=== PATIENT | female | born 1960 | race Caucasian/White ===

== ENCOUNTER → 2018-01-16 | Outpatient (CLI) | payer OTHER ==
--- NOTE | 2018-01-23 19:20 | Diagnostic Imaging Report ---
INDICATION: Routine screening. Comparison is made with prior study from 10/06/2015. 2-D and 3-D bilateral screening mammography was performed with CAD. The current study was also evaluated with a Computer Aided Detection (CAD) system. FINDINGS: Scattered fibronodular densities are identified bilaterally. No discrete mass or malignant-appearing microcalcifications are seen. There are benign calcifications present. The axillae are unremarkable. IMPRESSION: No mammographic features suspicious for malignancy are identified. ACR BI-RADS Category 2: Benign findings. Result letter will be mailed to the patient. Note: At least 10% of breast cancer is not imaged by mammography. Dictated by: Dictated on workstation # [id number]
== END ==
LOC: RAD 10:22
PROVIDERS: ATTEND Nurse Practitioner Primary Care
DX: Z12.31 Encounter for screening mammogram for malignant neoplasm of breast (principal)
CPT/HCPCS: 77067

== ENCOUNTER 2021-08-27 19:36 | Emergency (ER) | payer SELFPAY ==
[~2021-08-27] VITALS: Ht 172.7 cm; Wt 129.3 kg
--- NOTE | 2021-08-27 19:59 | ED Lower Extremity ---
General Stated Complaint: BILAT LOW EXT CELLULITIS Source: patient Exam Limitations: no limitations (LUZ PERSAUD APRN) History of Present Illness Date Seen by Provider: Aug 27, 2021 Time Seen by Provider: 19:56 Initial Comments To ER with concerns of bilateral lower extremity cellulitis. This is been ongoing waxing and waning for about 2 months. No fevers or chills. She states that this began with severe edema of both lower extremities that then turned into blisters which she then popped. She has had some ulcerative wounds to the medial posterior right leg and lateral posterior left leg. She smokes 1 pack of cigarettes per day. She last used methamphetamine upon awakening this morning. 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 Onset: just prior to arrival Severity: moderate Pain/Injury Location: bilateral leg Method of Injury: unknown Modifying Factors: Improves With Movement (LUZ PERSAUD APRN) Allergies and Home Medications Allergies Coded Allergies: erythromycin base (Verified Allergy, Unknown, 08/27/21) Patient Home Medication List Home Medication List Reviewed: Yes (LUZ PERSAUD APRN) Cephalexin (Cephalexin) 500 Mg Tablet, 500 MG PO QID Prescribed by: LUZ PERSAUD on 08/27/212047 Fluconazole (Diflucan) 150 Mg Tablet, 150 MG PO DAILY Prescribed by: LUZ PERSAUD on 08/27/212107 Last Action: New Order Gabapentin (Gabapentin) 100 Mg Capsule, 200 MG PO Q8H Prescribed by: LUZ PERSAUD on 08/27/212112 Last Action: New Order Review of Systems Constitutional: see HPI; No chills, No fever EENTM: see HPI Respiratory: no symptoms reported Cardiovascular: no symptoms reported Genitourinary: no symptoms reported Musculoskeletal: see HPI Skin: see HPI Psychiatric/Neurological: No Symptoms Reported (LUZ PERSAUD APRN) Physical Exam Vital Signs Vital Signs - First Documented 08/27/21 19:47 Temp 35.9 Pulse 101 Resp 18 B/P (MAP) 195/99 (131) Pulse Ox 100 O2 Delivery Room Air (SARA,STEFANO K DO) Vital Signs Capillary Refill : (LUZ PERSAUD APRN) Height, Weight, BMI Height: '" Weight: lbs. oz. kg; BMI Method: General Appearance: WD/WN, no apparent distress Neck: non-tender, full range of motion Cardiovascular: no murmur, tachycardia Respiratory: normal breath sounds, no respiratory distress, no accessory muscle use Hips: bilateral hip non-tender, bilateral hip normal inspection, bilateral hip normal range of motion Legs: bilateral leg non-tender, bilateral leg normal inspection, bilateral leg normal range of motion Knees: bilateral knee non-tender, bilateral knee normal inspection, bilateral knee normal range of motion Ankles: bilateral ankle non-tender, bilateral ankle normal inspection, bilateral ankle normal range of motion Feet: bilateral foot non-tender, bilateral foot normal inspection, bilateral foot normal range of motion Neurologic/Psychiatric: alert, normal mood/affect, oriented x 3 Skin: normal color, warm/dry, other (lipodermatosclerosis appearance of bilateral lower extremities with several shallow ulcerative wounds with granulation tissue in the wound bed to the medial posterior right lower leg and the lateral posterior left lower leg. Toes are warm and well-perfused.) (LUZ PERSAUD APRN) Progress/Results/Core Measures Results/Orders Lab Results Laboratory Tests Test 08/27/21 20:12 Range/Units White Blood Count 5.0 4.3-11.0 10^3/uL Red Blood Count 4.51 3.80-5.11 10^6/uL Hemoglobin 11.7 11.5-16.0 g/dL Hematocrit 37 35-52 % Mean Corpuscular Volume 83 80-99 fL Mean Corpuscular Hemoglobin 26 25-34 pg Mean Corpuscular Hemoglobin Concent 31 L 32-36 g/dL Red Cell Distribution Width 14.6 H 10.0-14.5 % Platelet Count 256 130-400 10^3/uL Mean Platelet Volume 9.8 9.0-12.2 fL Immature Granulocyte % (Auto) 0 % Neutrophils (%) (Auto) 62 42-75 % Lymphocytes (%) (Auto) 21 12-44 % Monocytes (%) (Auto) 11 0-12 % Eosinophils (%) (Auto) 4 0-10 % Basophils (%) (Auto) 1 0-10 % Neutrophils # (Auto) 3.1 1.8-7.8 10^3/uL Lymphocytes # (Auto) 1.1 1.0-4.0 10^3/uL Monocytes # (Auto) 0.6 0.0-1.0 10^3/uL Eosinophils # (Auto) 0.2 0.0-0.3 10^3/uL Basophils # (Auto) 0.1 0.0-0.1 10^3/uL Immature Granulocyte # (Auto) 0.0 0.0-0.1 10^3/uL Sodium Level 139 135-145 MMOL/L Potassium Level 3.9 3.6-5.0 MMOL/L Chloride Level 103 98-107 MMOL/L Carbon Dioxide Level 24 21-32 MMOL/L Anion Gap 12 5-14 MMOL/L Blood Urea Nitrogen 27 H 7-18 MG/DL Creatinine 0.94 0.60-1.30 MG/DL Estimat Glomerular Filtration Rate 61 BUN/Creatinine Ratio 29 Glucose Level 99 70-105 MG/DL Calcium Level 8.9 8.5-10.1 MG/DL Corrected Calcium 9.1 8.5-10.1 MG/DL Total Bilirubin 0.6 0.1-1.0 MG/DL Aspartate Amino Transf (AST/SGOT) 18 5-34 U/L Alanine Aminotransferase (ALT/SGPT) 20 0-55 U/L Alkaline Phosphatase 144 H 40-136 U/L B-Type Natriuretic Peptide 34.9 <100.0 PG/ML Total Protein 7.5 6.4-8.2 GM/DL Albumin 3.7 3.2-4.5 GM/DL Procalcitonin 0.05 <0.10 NG/ML (SARA,STEFANO K DO) Vital Signs/I&O 08/27/21 08/27/21 19:47 21:10 Temp 35.9 36.3 Pulse 101 110 Resp 18 18 B/P (MAP) 195/99 (131) 163/97 Pulse Ox 100 97 O2 Delivery Room Air Room Air (SARA,STEFANO K DO) Departure Impression Primary Impression: Venous stasis dermatitis Additional Impression: Venous stasis ulcer Disposition: 01 HOME, SELF-CARE Condition: Stable Departure-Patient Inst. Referrals: PANCHO APARICIO MD Patient Instructions: NO INSTRUCTIONS GIVEN Add. Discharge Instructions: 1. Return to ER for any concerns 2. Follow-up with either your regular doctor or it would be a good idea to establish with Dr. Aparicio from wound care. This is here at the hospital and I have provided you with the phone number. You can take the antibiotics as directed. Scripts Gabapentin (Gabapentin) 100 Mg Capsule 200 MG PO Q8H for Neuropathic pain, #60 CAP Prov: LUZ PERSAUD APRN 08/27/21 Fluconazole (Diflucan) 150 Mg Tablet 150 MG PO DAILY, #3 TAB Prov: LUZ PERSAUD APRN 08/27/21 Cephalexin (Cephalexin) 500 Mg Tablet 500 MG PO QID, #28 TAB Prov: LUZ PERSAUD APRN 08/27/21 ATTENDING PHYSICIAN NOTE: I WAS PHYSICALLY PRESENT ER PHYSICIAN WHEN THIS PATIENT WAS IN ER, BUT I WAS NOT INVOLVED IN ANY DECISION MAKING OR ANY CARE OF THIS PATIENT. (STEFANO RUIZ DO) LUZ PERSAUD APRN Aug 27, 2021 19:59 STEFANO RUIZ DO Aug 29, 2021 01:24
[2021-08-27 20:19] LABS: BASOPHILS # (AUTO) 0.1 10^3/uL (0.0-0.1); BASOPHILS % (AUTO) 1 % (0-10); EOSINOPHILS # (AUTO) 0.2 10^3/uL (0.0-0.3); EOSINOPHILS % (AUTO) 4 % (0-10); HEMATOCRIT 37 % (35-52); HEMOGLOBIN 11.7 g/dL (11.5-16.0); LYMPHOCYTES # (AUTO) 1.1 10^3/uL (1.0-4.0); LYMPHOCYTES % (AUTO) 21 % (12-44); MEAN CORPUSCULAR HEMOGLOBIN 26 pg (25-34); MEAN CORPUSCULAR HGB CONC 31 g/dL (32-36); MEAN CORPUSCULAR VOLUME 83 fL (80-99); MEAN PLATELET VOLUME 9.8 fL (9.0-12.2); MONOCYTES # (AUTO) 0.6 10^3/uL (0.0-1.0); MONOCYTES % (AUTO) 11 % (0-12); NEUTROPHILS # (AUTO) 3.1 10^3/uL (1.8-7.8); NEUTROPHILS % (AUTO) 62 % (42-75); PLATELET COUNT 256 10^3/uL (130-400)
[2021-08-27] MEDS ORDERED: CEPH500T PO (20:48)
[2021-08-27 20:58] LABS: ALBUMIN 3.7 GM/DL (3.2-4.5); BILIRUBIN,TOTAL 0.6 MG/DL (0.1-1.0); CALCIUM 8.9 MG/DL (8.5-10.1); CREATININE SERUM 0.94 MG/DL (0.60-1.30); POTASSIUM 3.9 MMOL/L (3.6-5.0); TOTAL PROTEIN 7.5 GM/DL (6.4-8.2)
[2021-08-27] MEDS ORDERED: cefTRIAXone 1 GM PRE-MIX 50 ML IV ONE (21:00)
[2021-08-27] MEDS ORDERED: FLUC150T PO (21:08)
[2021-08-27] MEDS ORDERED: MUPIROCIN 2% OINT 22 GM (BACTROBAN) TUBE ONE (21:09)
[2021-08-27 21:10] VITALS: BP 163/97
[2021-08-27] MEDS ORDERED: GABA-486 PO (21:13)
[2021-08-28] MEDS ORDERED: MUPIROCIN 2% OINT 22 GM (BACTROBAN) TUBE TOP SCH (09:00)
== END 2021-08-27 21:30 | disposition home or self-care (01) ==
LOC: EDUNIT# 19:36 → ER 19:38
DX: I87.2 Venous insufficiency (chronic) (peripheral) (principal); I83.018 Varicose veins of right lower extremity with ulcer other part of lower leg; I83.028 Varicose veins of left lower extremity with ulcer other part of lower leg; L97.819 Non-pressure chronic ulcer of other part of right lower leg with unspecified severity; L97.829 Non-pressure chronic ulcer of other part of left lower leg with unspecified severity; F17.210 Nicotine dependence, cigarettes, uncomplicated
CPT/HCPCS: 36415; 80053; 83880; 84145; 85025; 87070; 87077; 87186; 87205

== ENCOUNTER 2021-10-04 03:43 | Inpatient (IN) | payer SELFPAY ==
[~2021-10-04] VITALS: Ht 175.3 cm; Wt 129.0 kg
[~2021-10-04 03:43] MED LIST: CEPH500T PO; FLUC150T PO; GABA-486 PO
[2021-10-04] MEDS ORDERED: KETOROLAC 30 MG/ML VIAL IVP STA (04:06)
[2021-10-04] MEDS ORDERED: PIPERACILLIN SODIUM/TAZOBACTAM 4.5 GM in NS (IVPB) 100 ML IV ONE (04:15)
[2021-10-04] MEDS ORDERED: NS IV 1000 ML 1,000 ML IV SCH (04:15)
[2021-10-04] MEDS ORDERED: VANCOMYCIN INJECTION 1,000 MG in NS (IVPB) 250 ML IV SCH ×2 (04:15→08:00)
[2021-10-04 04:22] LABS: BASOPHILS % (AUTO) 0 % (0-10); EOSINOPHILS % (AUTO) 0 % (0-10); HEMATOCRIT 37 % (35-52); HEMOGLOBIN 11.7 g/dL (11.5-16.0); LYMPHOCYTES # (AUTO) 0.3 10^3/uL (1.0-4.0); LYMPHOCYTES % (AUTO) 9 % (12-44); MEAN CORPUSCULAR HEMOGLOBIN 25 pg (25-34); MEAN CORPUSCULAR HGB CONC 32 g/dL (32-36); MEAN CORPUSCULAR VOLUME 79 fL (80-99); MONOCYTES # (AUTO) 0.4 10^3/uL (0.0-1.0); MONOCYTES % (AUTO) 13 % (0-12); NEUTROPHILS # (AUTO) 2.6 10^3/uL (1.8-7.8); NEUTROPHILS % (AUTO) 76 % (42-75); PLATELET COUNT 213 10^3/uL (130-400); WHITE BLOOD COUNT 3.4 10^3/uL (4.3-11.0)
--- NOTE | 2021-10-04 04:31 | ED Lower Extremity ---
General Chief Complaint: Skin/Wound Problems Stated Complaint: POSS ULCERS ON BOTH LEGS,RED & HOT Source: patient History of Present Illness Date Seen by Provider: Oct 04, 2021 Time Seen by Provider: 04:00 Initial Comments PT ARRIVES VIA POV, ARRIVES WITH A CANE C/O BILATERAL LOWER LEG WOUNDS, THAT HAVE BEEN THERE "FOR 2 OR 3 MONTHS" WAS SEEN HERE ON 08/27/21 FOR THIS PROBLEM, AND WAS PRESCRIBED GABAPENTIN, FLUCONAZOLE AND CEPHALEXIN. (PT'S FIRST VISIT TO THIS FACILITY) WAS ADVISED TO FOLLOW UP WITH HER PCP, AND ALSO ADVISED TO FOLLOW UP WITH DR. FRIED WITH THE WOUND CARE CLINIC. PT HAS NOT ATTEMPTED TO FOLLOW UP WITH ANYONE AT ANY TIME. STATES HER LEGS HURT AND BURN AND FEEL HOT--THIS IS ALSO ONGOING BUT IS NOW CONCERNED THAT SHE HAS INFECTION HAS NOT CHECKED HER TEMPERATURE. STATES SHE HAS BEEN TAKING "IBUPROFEN THE MAX DOSE" FOR PAIN STATES SHE WAS KEEPING THEM COVERED, BUT THOUGHT THAT WAS CAUSING MORE SKIN BREAKDOWN, SO THEN SHE JUST STARTED LEAVING THEM DRY. HAS NOT APPLIED ANY TOPICAL MEDICATIONS TO THE WOUNDS THERE IS NO DRAINAGE FROM THE WOUNDS SHE HAD REPORTED ON PREVIOUS VISIT THAT HER LEGS HAD STARTED SWELLING AND THEN BLISTERS DEVELOPED AND SHE POPPED THE BLISTERS. PT SMOKES AT LEAST 1 PPD OF CIGARETTES SHE ALSO IS INTERMEDIATE USER OF METHAMPHETAMINES--NOW SMOKES IT, BUT USED TO USE IT IV--STATES THE REASON SHE QUIT USING IT IV WAS BECAUSE "I DIDN'T HAVE ANY VEINS LEFT" SHE LAST SMOKED METH "SOMETIME TODAY" STATES SHE HAS SHOT UP METH IN HER FEET AND LEGS IN THE PAST, BUT DENIES USING IN THE AREAS OF WOUNDS, AND STATES SHE HAS NOT USED IV METH IN A FEW YEARS. PT STATES HER ONLY MEDICAL PROBLEM IS HIGH BLOOD PRESSURE AND TAKES LISINOPRIL--DENIES ANY MISSED DOSES OF MEDICATIONS SHE ALSO HAS HEPATITIS C--NO TREATMENT, STATES "MY BODY HEALED ITSELF" PT DENIES BEING A DIABETIC. PT HAS NOT HAD COVID-19 OR FLU VACCINES "AND I'M NOT GONNA GET THEM" PCP: [facility], DR. BLANCA SAWYER--HAS NOT BEEN THERE IN OVER 2 YEARS. STATES SHE HAS NOT SEEN A DR IN YEARS, UNTIL ER VISIT IN AUGUST ALSO IS ESTABLISHED AT [facility], BUT HAS NOT BEEN THERE IN YEARS EITHER. STATES SHE HAS AN APPOINTMENT THERE THIS Sunday10/06/21. STATES SHE HAS LIVED HER IN [place] FOR 5 YEARS. Allergies and Home Medications Allergies Coded Allergies: erythromycin base (Verified Allergy, Unknown, 08/27/21) Patient Home Medication List Cephalexin (Cephalexin) 500 Mg Tablet, 500 MG PO QID Prescribed by: LUZ PERSAUD on 08/27/212047 Fluconazole (Diflucan) 150 Mg Tablet, 150 MG PO DAILY Prescribed by: LUZ PERSAUD on 08/27/212107 Gabapentin (Gabapentin) 100 Mg Capsule, 200 MG PO Q8H Prescribed by: LUZ PERSAUD on 08/27/212112 Review of Systems Constitutional: no symptoms reported Respiratory: dyspnea on exertion (CHRONIC/UNCHANGED) Cardiovascular: No chest pain; edema Gastrointestinal: no symptoms reported Genitourinary: no symptoms reported Control/STD Prophylaxis: Other (MENOPAUSAL) Musculoskeletal: see HPI Skin: see HPI Psychiatric/Neurological: See HPI, Paresthesia (BURNING SENSATION IN LEGS AND FEET) Past Aqywdtr-Uqtrst-Ipsern Hx Patient Social History Tobacco Use?: Yes (1 PPD) Tobacco type used: Cigarettes Smoking Status: Current Everyday Smoker Substance use?: Yes Substance type: Methamphetamine Additional substance use comme: + IV USE AND SMOKES IT. Substance frequency: Daily Alcohol Use?: No Past Medical History Surgery/Hospitalization HX: HTN Surgeries: Yes (HYST/BSO; BTL; CHOLECYSTECTOMY) Gallbladder, Hysterectomy, Oophorectomy, Tubal Ligation Respiratory: No Cardiac: Yes Chronic Edema/Swelling, Hypertension Neurological: No CONSTRUCTION REP History: Hysterectomy, Menopausal Genitourinary: No Gastrointestinal: Yes (HEPATITIS C-NO TREATMENT; S/P CHOLECYSTECTOMY) Hepatitis, Gall Bladder Disease Musculoskeletal: Yes (CHRONIC HIP PAIN ) Arthritis Endocrine: Yes (OBESITY) HEENT: Yes (POOR DENTITION) Cancer: No Psychosocial: Yes (SUBSTANCE ABUSE) Integumentary: Yes (CHRONIC LEG WOUNDS) Blood Disorders: No Physical Exam Vital Signs Vital Signs - First Documented 10/04/21 03:52 Temp 37.5 Pulse 110 Resp 20 B/P (MAP) 126/94 (105) Pulse Ox 98 O2 Delivery Room Air Capillary Refill : Height, Weight, BMI Height: '" Weight: lbs. oz. kg; 43.00 BMI Method: General Appearance: obese, other (WALKS IN WITH A CANE AND IS MILDLY DYSPNEIC WITH WALKING, BUT ABLE TO TALK IN FULL SENTENCES. DYSPNEA IMPROVES AT REST. REEKS OF CIGARETTES. ) HEENT: other (POOR DENTITION) Neck: normal inspection Cardiovascular: normal peripheral pulses, regular rate, rhythm, no murmur Respiratory: normal breath sounds, no respiratory distress, no accessory muscle use Gastrointestinal: soft Hips: bilateral hip non-tender Legs: bilateral leg other (BILATERAL LOWER LEGS WITH CHRONIC VENOUS STASIS CHANGES, AND EDEMA--2+ AROUND THE ANKLES AND FEET: RIGHT MEDIAL LOWER LEG WITH 9 X 6 CM AREA OF NECROSIS WITH THICK BLACK ESCHAR WITH FAT TISSUE VISIBLE AND INVOLVED WITH NECROTIC/BLACK ESCHAR. LEFT LOWER LEG--LATERAL AND POSTERIOR ASPECT WITH 13 X 11 CM NECROTIC ULCER WITH THICK BLACK ESCHAR WITH FAT INVOLVEMENT WITH NECROSIS AND BLACK ESCHAR. SEVERAL 1 CM OR SMALLER MORE SHALLOW ULCERS TO BILATERAL LOWER LEGS. BOTH LOWER LEGS WITH WARMTH AND ERYTHEMA, WITH CHRONIC VENOUS STASIS CHANGES, AND SOME AREAS OF WOODY INDURATION. NO DRAINAGE. NO STREAKS. DORSALIS PEDIS PULSES +2/4 BILATERALLY. TOES ARE ALL PINK AND WARM WITH GOOD CAPILLARY REFILL. NO WOUNDS TO FEET OR TOES. ) Knees: bilateral knee non-tender Ankles: bilateral ankle other ( ABOVE) Feet: bilateral foot other ( ABOVE. 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 ) Progress/Results/Core Measures Results/Orders Lab Results Laboratory Tests Test 10/04/21 04:10 10/04/21 04:27 Range/Units White Blood Count 3.4 L 4.3-11.0 10^3/uL Red Blood Count 4.63 3.80-5.11 10^6/uL Hemoglobin 11.7 11.5-16.0 g/dL Hematocrit 37 35-52 % Mean Corpuscular Volume 79 L 80-99 fL Mean Corpuscular Hemoglobin 25 25-34 pg Mean Corpuscular Hemoglobin Concent 32 32-36 g/dL Red Cell Distribution Width 15.5 H 10.0-14.5 % Platelet Count 213 130-400 10^3/uL Mean Platelet Volume 10.0 9.0-12.2 fL Immature Granulocyte % (Auto) 1 % Neutrophils (%) (Auto) 76 H 42-75 % Lymphocytes (%) (Auto) 9 L 12-44 % Monocytes (%) (Auto) 13 H 0-12 % Eosinophils (%) (Auto) 0 0-10 % Basophils (%) (Auto) 0 0-10 % Neutrophils # (Auto) 2.6 1.8-7.8 10^3/uL Lymphocytes # (Auto) 0.3 L 1.0-4.0 10^3/uL Monocytes # (Auto) 0.4 0.0-1.0 10^3/uL Eosinophils # (Auto) 0.0 0.0-0.3 10^3/uL Basophils # (Auto) 0.0 0.0-0.1 10^3/uL Immature Granulocyte # (Auto) 0.0 0.0-0.1 10^3/uL Erythrocyte Sedimentation Rate 47 H 0-30 MM/HR Prothrombin Time 13.6 12.2-14.7 SEC INR Comment 1.0 0.8-1.4 Activated Partial Thromboplast Time 35 24-35 SEC D-Dimer 1.18 H 0.00-0.49 UG/ML Sodium Level 135 135-145 MMOL/L Potassium Level 4.1 3.6-5.0 MMOL/L Chloride Level 98 98-107 MMOL/L Carbon Dioxide Level 21 21-32 MMOL/L Anion Gap 16 H 5-14 MMOL/L Blood Urea Nitrogen 18 7-18 MG/DL Creatinine 1.11 0.60-1.30 MG/DL Estimat Glomerular Filtration Rate 57 BUN/Creatinine Ratio 16 Glucose Level 147 H 70-105 MG/DL Lactic Acid Level 0.98 0.50-2.00 MMOL/L Calcium Level 8.2 L 8.5-10.1 MG/DL Corrected Calcium 8.7 8.5-10.1 MG/DL Magnesium Level 1.7 1.6-2.4 MG/DL Total Bilirubin 0.6 0.1-1.0 MG/DL Aspartate Amino Transf (AST/SGOT) 28 5-34 U/L Alanine Aminotransferase (ALT/SGPT) 22 0-55 U/L Alkaline Phosphatase 128 40-136 U/L Total Creatine Kinase 102 29-168 U/L Creatine Kinase MB 0.8 <6.6 NG/ML Myoglobin 62.6 10.0-92.0 NG/ML C-Reactive Protein High Sensitivity 4.55 H 0.00-0.50 MG/DL B-Type Natriuretic Peptide 30.4 <100.0 PG/ML Total Protein 7.2 6.4-8.2 GM/DL Albumin 3.4 3.2-4.5 GM/DL Procalcitonin 0.14 H <0.10 NG/ML Acetaminophen Level < 10 L 10-30 UG/ML Serum Alcohol < 10 <10 MG/DL Influenza Type A (RT-PCR) Not Detected Not Detecte Influenza Type B (RT-PCR) Not Detected Not Detecte SARS-CoV-2 RNA (RT-PCR) Detected H Not Detecte Urine Color YELLOW Urine Clarity CLEAR Urine pH 6.0 5-9 Urine Specific [place] 1.020 1.016-1.022 Urine Protein NEGATIVE NEGATIVE Urine Glucose (UA) NEGATIVE NEGATIVE Urine Ketones NEGATIVE NEGATIVE Urine Nitrite NEGATIVE NEGATIVE Urine Bilirubin NEGATIVE NEGATIVE Urine Urobilinogen 0.2 < = 1.0 MG/DL Urine Leukocyte Esterase NEGATIVE NEGATIVE Urine RBC (Auto) TRACE-I H NEGATIVE Urine RBC RARE /HPF Urine WBC NONE /HPF Urine Squamous Epithelial Cells 5-10 /HPF Urine Crystals NONE /LPF Urine Bacteria NEGATIVE /HPF Urine Casts NONE /LPF Urine Mucus NEGATIVE /LPF Urine Culture Indicated CULTURE PENDING Urine Opiates Screen NEGATIVE NEGATIVE Urine Oxycodone Screen NEGATIVE NEGATIVE Urine Methadone Screen NEGATIVE NEGATIVE Urine Propoxyphene Screen NEGATIVE NEGATIVE Urine Barbiturates Screen NEGATIVE NEGATIVE Ur Tricyclic Antidepressants Screen NEGATIVE NEGATIVE Urine Phencyclidine Screen NEGATIVE NEGATIVE Urine Amphetamines Screen POSITIVE H NEGATIVE Urine Methamphetamines Screen POSITIVE H NEGATIVE Urine Benzodiazepines Screen NEGATIVE NEGATIVE Urine Cocaine Screen NEGATIVE NEGATIVE Urine Cannabinoids Screen NEGATIVE NEGATIVE My Orders Orders - STEFANO RUIZ DO Ed Iv/Invasive Line Start (10/04/21 04:06) Acetaminophen (10/04/21 04:06) Alcohol (10/04/21 04:06) Bnp [place] (10/04/21 04:06) Cbc With Automated Diff (10/04/21 04:06) Comprehensive Metabolic Panel (10/04/21 04:06) Creatine Kinase (10/04/21 04:06) Creatine Kinase Mb (10/04/21 04:06) Hs C Reactive Protein (10/04/21 04:06) Fibrin Degradation Products (10/04/21 04:06) Drug Screen Stat (Urine) (10/04/21 04:06) Lactic Acid Analyzer (10/04/21 04:06) Magnesium (10/04/21 04:06) Procalcitonin (Pct) (10/04/21 04:06) Protime With Inr (10/04/21 04:06) Partial Thromboplastin Time (10/04/21 04:06) Ua Culture If Indicated (10/04/21 04:06) Blood Culture (10/04/21 04:06) Erythrocyte Sedimentation Rate (10/04/21 04:06) Myoglobin Serum (10/04/21 04:06) Tibia/Fibula, Left, 2 Views (10/04/21 04:06) Tibia/Fibula, Right, 2 Views (10/04/21 04:06) Ed Iv/Invasive Line Start (10/04/21 04:06) Ns Iv 1000 Ml (Sodium Chloride 0.9%) (10/04/21 04:15) Ketorolac Injection (Toradol Injection) (10/04/21 04:06) Piperacillin Sodium/Tazobactam (Zosyn Vi (10/04/21 04:15) Urine Culture (10/04/21 04:06) Ed Iv/Invasive Line Start (10/04/21 04:06) Ed Iv/Invasive Line Start (10/04/21 04:06) Vital Signs Adult Sepsis Patie Q15M (10/04/21 04:06) O2 (10/04/21 04:06) Remove Rings In Anticipation O (10/04/21 04:06) Covid 19 Inhouse Test (10/04/21 04:06) Influenza A And B By Pcr (10/04/21 04:06) Isolation Central Supply Req (10/04/21 04:06) Vancomycin Injection (Vancomycin Injecti (10/04/21 04:15) Ct Angio Chest W (10/04/21 04:59) Chest 1 View, Ap/Pa Only (10/04/21 04:59) Hemoglobin A1c (10/04/21 05:42) Medications Given in ED Current Medications Medications Dose Ordered Sig/Giuseppe Route Start Time Stop Time Status Last Admin Dose Admin Piperacillin Sod/ Tazobactam Sod 4.5 gm/Sodium Chloride 100 ml @ 200 mls/hr ONCE ONCE IV 10/04/21 04:15 10/04/21 04:44 DC 10/04/21 04:57 200 MLS/HR Vital Signs/I&O 10/04/21 03:52 Temp 37.5 Pulse 110 Resp 20 B/P (MAP) 126/94 (105) Pulse Ox 98 O2 Delivery Room Air Progress Progress Note : Progress Note SEPSIS PROTOCOL INITIATED COVID-19 TESTING DONE GIVEN IV FLUIDS, ANTIBIOTICS AND PAIN MEDICATIONS, LACTIC ACID LEVEL AND BLOOD CULTURES DRAWN FOCUS EXAM AT 0455: HR 100 O2 SAT 94% BP 136/84 H-RRR, NO MURMUR L-CTA SUSPECTED SEPSIS--SOURCE PULMONARY AND/OR SKIN/SOFT TISSUE Departure Communication (Admissions) 0605--SPOKE WITH DR. SHETH, HOSPITALIST FOR [facility]. ACCEPTS PT FOR ADMIT. SHE WILL DO ADMIT ORDERS. 0608--SPOKE WITH DR. BENAVIDES FOR SURGICAL CONSULT. Impression Primary Impression: BILATERAL LOWER LEG ULCERS WITH CELLULITIS Additional Impressions: COVID-19 virus infection Methamphetamine use Smoker HTN (hypertension) Non-compliance Disposition: ADMITTED INPATIENT Condition: Stable Admissions Decision to Admit Reason: Admit from ER (General) Decision to Admit/Date: Oct 04, 2021 Time/Decision to Admit Time: 06:05 Departure-Patient Inst. Referrals: BLANCA SAWYER MD (PCP/Family) Primary Care Physician STEFANO RUIZ DO Oct 04, 2021 04:31
[2021-10-04 04:32] LABS: BILIRUBIN,URINE NEGATIVE (NEGATIVE); CLARITY,URINE CLEAR; COLOR,URINE YELLOW; GLUCOSE, URINE (UA) NEGATIVE (NEGATIVE); KETONES,URINE NEGATIVE (NEGATIVE); LEUKOCYTE ESTERASE ,URINE NEGATIVE (NEGATIVE); NITRITE,URINE NEGATIVE (NEGATIVE); PROTEIN,URINE NEGATIVE (NEGATIVE)
[2021-10-04 04:37] LABS: ALBUMIN 3.4 GM/DL (3.2-4.5); CHLORIDE 98 MMOL/L (98-107); POTASSIUM 4.1 MMOL/L (3.6-5.0); SODIUM 135 MMOL/L (135-145)
[2021-10-04 04:38] LABS: CALCIUM 8.2 MG/DL (8.5-10.1)
[2021-10-04 04:40] LABS: GLUCOSE 147 MG/DL (70-105); TOTAL PROTEIN 7.2 GM/DL (6.4-8.2)
[2021-10-04 04:40] LABS: BACTERIA,URINE NEGATIVE /HPF; RBC,URINE RARE /HPF
[2021-10-04 04:41] LABS: BILIRUBIN,TOTAL 0.6 MG/DL (0.1-1.0); CARBON DIOXIDE 21 MMOL/L (21-32)
[2021-10-04 04:42] LABS: FIBRIN DEGRADATION PRODUCTS 1.18 UG/ML (0.00-0.49); PROTHROMBIN TIME PATIENT 13.6 SEC (12.2-14.7)
[2021-10-04 04:43] LABS: ALKALINE PHOSPHATASE 128 U/L (40-136); CREATININE SERUM 1.11 MG/DL (0.60-1.30); GFR ESTIMATED 57
[2021-10-04 04:44] LABS: BUN/CREATININE RATIO 16
[2021-10-04 04:44] LABS: AMPHETAMINE SCREEN, URINE POSITIVE (NEGATIVE); BARBITURATE SCREEN URINE NEGATIVE (NEGATIVE); BENZODIAZEPINES SCREEN URINE NEGATIVE (NEGATIVE); CANNABINOID SCREEN, URINE NEGATIVE (NEGATIVE); COCAINE SCREEN URINE NEGATIVE (NEGATIVE); METHADONE STAT NEGATIVE (NEGATIVE); METHAMPHETAMINE SCREEN URINE S POSITIVE (NEGATIVE); OPIATE SCREEN URINE NEGATIVE (NEGATIVE); OXYCODONE STAT NEGATIVE (NEGATIVE); PROPOXYPHENE STAT NEGATIVE (NEGATIVE); TRICYCLIC ANTIDEPRESSANTS SCRE NEGATIVE (NEGATIVE)
[2021-10-04 04:46] LABS: ALANINE AMINOTRANSFERASE 22 U/L (0-55); MAGNESIUM 1.7 MG/DL (1.6-2.4)
[2021-10-04 04:47] LABS: CREATINE KINASE 102 U/L (29-168)
[2021-10-04 04:54] LABS: CREATINE KINASE MB 0.8 NG/ML (<6.6)
[2021-10-04 04:58] LABS: ERYTHROCYTE SEDIMENTATION RATE 47 MM/HR (0-30)
[2021-10-04 05:03] LABS: ACETAMINOPHEN < 10 UG/ML (10-30)
--- NOTE | 2021-10-04 06:58 | Diagnostic Imaging Report ---
INDICATION: Covid positive EXAMINATION: Chest 10/04/2021 FINDINGS: There are scattered patchy airspace opacities throughout all lobes. There are no effusions. There is no pneumothorax. Heart is unremarkable. Pulmonary vasculature slightly prominent. IMPRESSION: 1. Diffuse bilateral infiltrates. Dictated by: Dictated on workstation # [id number]
--- NOTE | 2021-10-04 07:16 | Diagnostic Imaging Report ---
INDICATION: leg pain TECHNIQUE: AP and lateral views of the left tibia and fibula CORRELATION STUDY: None FINDINGS: The tibia and fibula are intact. There is no evidence for acute fracture. Limited visualized portions of the knee and ankle are unremarkable. Prominent plantar calcaneal spur. Soft tissues are unremarkable. IMPRESSION: 1.Negative for acute bony abnormality of the left leg. Dictated by: Dictated on workstation # [id number]
--- NOTE | 2021-10-04 07:17 | Diagnostic Imaging Report ---
INDICATION: leg pain TECHNIQUE: AP and lateral views of the right tibia and fibula CORRELATION STUDY: None FINDINGS: The tibia and fibula are intact. There is no evidence for acute fracture. Visualization of the knee and ankle are rather limited given positioning but appear generally unremarkable. There is essentially no AP image obtained. IMPRESSION: 1.Negative for acute bony abnormality of the leg. Dictated by: Dictated on workstation # [id number]
--- NOTE | 2021-10-04 07:17 | Diagnostic Imaging Report ---
PROCEDURE: CT angiography of the chest with contrast. TECHNIQUE: Multiple contiguous axial images were obtained through the chest after uneventful bolus administration of intravenous contrast. 3D reconstructed CTA MIP acquisitions were also performed. Auto Exposure Controls were utilized during the CT exam to meet ALARA standards for radiation dose reduction. INDICATION: 61-year-old female, COVID positive, shortness of air. CORRELATION: None FINDINGS: Heart size borderline enlarged but without disproportionate right heart strain. Coronary artery calcifications. Thoracic aorta unremarkable. No large central pulmonary embolism. Peripheral arteries are suboptimally evaluated but small emboli could easily go undetected. No pathologically enlarged mediastinal lymph nodes. Small hiatal hernia. The lung hooper are clear of infiltrate. No significant pleural effusion. Mild hepatic steatosis. Liver enlarged. Nonacute compression deformity superior L1 endplate. IMPRESSION: 1. No CT evidence for pulmonary embolism. However, there are limitations for assessment of the peripheral arteries. Dictated by: Dictated on workstation # [id number]
[2021-10-04] MEDS ORDERED: NALOXONE 0.4 MG/ML 1 ML (NARCAN) VIAL IV PRN (08:00)
[2021-10-04] MEDS ORDERED: ONDANSETRON 4 MG (ZOFRAN) ORAL DISSOLVE TAB PO PRN (08:00)
[2021-10-04] MEDS ORDERED: ONDANSETRON 4 MG/2 ML (SDV) Z0FRAN IV PRN (08:00)
[2021-10-04] MEDS ORDERED: CALCIUM CARBONATE 500 MG (TUMS) TAB.CHEW PO PRN (08:00)
[2021-10-04] MEDS ORDERED: morphine INJ 4 MG/ML 1 ML (VIAL/SYRINGE) IV PRN (08:00)
[2021-10-04] MEDS ORDERED: MELATONIN 3 MG TABLET PO PRN (08:00)
[2021-10-04] MEDS ORDERED: diphenhydrAMINE 25 MG TAB (BENADRYL) PO PRN (08:00)
[2021-10-04] MEDS ORDERED: diphenhydrAMINE 50 MG/ML INJ (BENADRYL) IVP PRN (08:00)
[2021-10-04] MEDS ORDERED: ACETAMINOPHEN 325 MG TABLET PO PRN (08:00)
[2021-10-04] MEDS ORDERED: LACTULOSE SYRUP 10GM/15ML (ENULOSE) 30ML UDC PO PRN (08:00)
[2021-10-04] MEDS ORDERED: LORazepam INJ 2 MG/ML (ATIVAN) VIAL IVP PRN (08:00)
[2021-10-04] MEDS ORDERED: BISACODYL 10 MG SUPP (DULCOLAX) PR PRN (08:00)
[2021-10-04] MEDS ORDERED: MILK OF MAGNESIA 400 MG/5 ML 30 ML UDC PO PRN (08:00)
[2021-10-04] MEDS ORDERED: polyethylene glycoL POWDER 17 GM (MIRALAX) PACK PO PRN (08:00)
[2021-10-04] MEDS ORDERED: ANTACID SUSP 30 ML UDC (MYLANTA) PO PRN (08:00)
[2021-10-04 08:01] VITALS: BP 130/59
[2021-10-04 08:32] VITALS: BP 130/59
[2021-10-04] MEDS ORDERED: RT-ALBUTEROL HFA 8.5 GM INHALER IH PRN (09:00)
[2021-10-04] MEDS: SENNOSIDES 8.6 MG (SENOKOT) TAB PO SCH ×2 (09:49→19:28)
[2021-10-04] MEDS: DOCUSATE SODIUM 100 MG (COLACE) CAP PO SCH ×2 (09:49→19:28)
[2021-10-04] MEDS: NS IV 1000 ML 1,000 ML IV SCH (09:49)
[2021-10-04] MEDS: ENOXAPARIN 40 MG/0.4 ML (LOVENOX) SYR SC SCH ×2 (09:49→21:15)
[2021-10-04] MEDS: VANCOMYCIN 1500 MG/NS 500 ML IVPB IV SCH ×4 (09:50→21:15)
[2021-10-04] MEDS: inSUlin ASPART (NovoLOG) 1 UNIT/0.01 ML (CHARGE PER UNIT) SC SCH ×3 (10:53→20:36)
--- NOTE | 2021-10-04 11:24 | History & Physical-Hospitalist ---
NENITA VAZQUEZ 10/04/21 1124: History of Present Illness HPI/Chief Complaint This is a 61 y/o female with a hx of Hepatitis C infection and IV methampheta mine abuse presenting for soft tissue infection. Pt was last seen at this facility on 08/27/21 for this concern. At that time, a left leg ulcer was swabbed and came back positive for pseudomonas aeruginosa she was given gabapentin, fluconazole, and keflex, and told to f/u with her PCP and the wound care clinic, but she did not follow up. She reports that wounds on her legs have been present for the past 2 to 3 months and initially were accompanied by swelling and blisters that she popped. Her legs have recently become more painful and warm, but she has not noted swelling or discharge. She states she takes acetaminophen for the pain at the maximum dose, with minimal relief. She is now concerned that her legs are infected. Date Seen 10/04/21 Time Seen by a Provider: 10:15 Attending Physician Ivette Jimenez Julie A MD Referring Physician Date of Admission Oct 04, 2021 at 06:10 Home Medications & Allergies Home Medications Reviewed patient Home Medication Reconciliation performed by pharmacy medication reconciliations technician support association and/or nursing. Patients Allergies have been reviewed. Allergies Allergies Coded Allergies erythromycin base (Verified Allergy, Unknown, 08/27/21) Past Rhzlmqa-Gpfizx-Ygkclu Hx Patient Social History Tobacco Use?: Yes (1 PPD) Tobacco type used: Cigarettes Smoking Status: Current Everyday Smoker (1 PPD) Smokeless Tobacco Frequency: Never a User Use of E-Cig and/or Vaping dev: No Use of E-Cig and/or Vaping Anoop: Never a User Substance use?: Yes Substance type: Methamphetamine Additional substance use comme: + IV USE AND SMOKES IT. Substance frequency: Daily Alcohol Use?: No Pt feels they are or have been: No Immunizations Up To Date First/Initial COVID19 Vaccinat: N/A Second COVID19 Vaccination Jean-Pierre: N/A Tetanus Booster (TDap): Unknown Hepatitis A: No Hepatitis B: No Current Status status: No status: No Advance Directives: No Communicates: Verbally Primary Language: Polish Preferred Spoken Language: Polish Is interpretation needed?: No Sensory deficits: Vision impairment Implanted or Applied Medical D: None Past Medical History Surgeries: Gallbladder, Hysterectomy, Oophorectomy, Tubal Ligation Chronic Edema/Swelling, Hypertension [employer] History: Hysterectomy, Menopausal Hepatitis, Gall Bladder Disease Arthritis Blood Disorders: No Review of Systems Constitutional: No fever EENTM: no symptoms reported Respiratory: dyspnea on exertion Cardiovascular: No chest pain; edema Gastrointestinal: No abdominal pain, No constipation, No diarrhea, No nausea, No vomiting Genitourinary: No dysuria, No frequency Skin: see HPI Physical Exam Physical Exam Vital Signs Vital Signs - First Documented 10/04/21 03:52 Temp 37.5 Pulse 110 Resp 20 B/P (MAP) 126/94 (105) Pulse Ox 98 O2 Delivery Room Air Capillary Refill : Less Than 3 Seconds Height, Weight, BMI Height: '" Weight: lbs. oz. kg; 41.97 BMI Method: General Appearance: Moderate Distress, Obese HEENT: PERRL/EOMI Neck: Non Tender Respiratory: Chest Non Tender, Normal Breath Sounds Cardiovascular: Regular Rate, Rhythm, No Gallop, No Murmur Gastrointestinal: Non Tender, Soft Rectal: Deferred Extremity: Normal Capillary Refill, Pedal Edema (2+ ankles and feet) Neurologic/Psychiatric: Alert, Oriented x3 Skin: Other (Areas of necrotic tissue with involvement down to the subcutaneous fat are noted to the bilateral lower extremities) Results Results/Procedures Labs Laboratory Tests 10/04/21 04:10 Patient resulted labs reviewed. Imaging: Reviewed Imaging Report Assessment/Plan Admission Diagnosis Sepsis Admission Status: Inpatient Order (span 2 midnights) Reason for Inpatient Admission: Sepsis Assessment and Plan This is a 61 y/o female with a hx of Hepatitis C infection and IV methamphetamine abuse presenting for soft tissue infection to the bilateral lower extremities. Diagnosis/Problems Diagnosis/Problems (1) Sepsis Status: Acute Assessment & Plan: - SIRS criteria met: 2/4 (HR, WBC) - Qsofa 0/3 - Severe sepsis criteria not met - UA clean - blood cx pending - high suspicions for infectious process; soft tissue infection in b/l LE - Start Pip/tazo and Vanc - PCT: 0.14, CRP: 4.55, ESR: 47 - will consider d/c abx after 48hours if no blood cx growth and lower clinical suspicion Qualifiers: Sepsis type: Pseudomonas Sepsis acute organ dysfunction status: without acute organ dysfunction Qualified Codes: A41.52 - Sepsis due to Pseudomonas (2) Bilateral lower leg cellulitis Status: Acute Assessment & Plan: - Wound culture 08/27/21 growing pseudomonas - Start vanc and pip/tazo - General surgery consulted; appreciate recs (3) COVID-19 virus infection Status: Acute Assessment & Plan: - PCR positive 10/04/21 - Not currently symptomatic (4) HTN (hypertension) Status: Chronic Assessment & Plan: - continue lisinopril Qualifiers: Hypertension type: primary hypertension Qualified Codes: I10 - Essential (primary) hypertension (5) Methamphetamine use Status: Chronic Assessment & Plan: - Pt states last use was 10/04/21 - Drug screen in ED positive for meth - Pt not currently interested in quitting IVETTE JIMENEZ DO 10/05/21 0547: History of Present Illness HPI/Chief Complaint CC: BIlateral lower extremity cellulitis with sepsis HPI: 61 yr old WF who is a known meth user. Who presents to the ER with lower extremity swelling and redness. Found to have bilateral cellulitis with significant eschar over the wounds. In need of debridement and IV antibiotics. We will continue gentle IV fluids and pain control and wait for Dr. Camejo consult. Source: patient Exam Limitations: no limitations Past Oxfrpky-Wsgkox-Awojuk Hx Patient Social History Marrital Status: single Employed/Student: unemployed Smoking Status: Current Everyday Smoker (1 PPD) Past Medical History High Cholesterol, Hypertension Review of Systems Constitutional: see HPI EENTM: no symptoms reported Respiratory: dyspnea on exertion Cardiovascular: edema Gastrointestinal: no symptoms reported Musculoskeletal: no symptoms reported Skin: see HPI All Other Systems Reviewed Negative Unless Noted: Yes Physical Exam Physical Exam General Appearance: No Apparent Distress, Chronically ill, Moderate Distress, Obese Eyes: Right Eye Normal Inspection, Right Eye PERRL HEENT: PERRL/EOMI, Normal ENT Inspection, Pharynx Normal, Moist Mucous Membranes Neck: Full Range of Motion, Normal Inspection, Non Tender Respiratory: Chest Non Tender, Lungs Clear, Normal Breath Sounds, No Accessory Muscle Use, No Respiratory Distress Cardiovascular: Regular Rate, Rhythm, No Edema, No Gallop, No JVD, No Murmur, Normal Peripheral Pulses Gastrointestinal: Normal Bowel Sounds, No Organomegaly, No Pulsatile Mass, Non Tender, Soft Back: Normal Inspection, No CVA Tenderness, No Vertebral Tenderness Extremity: Normal Capillary Refill, Normal Inspection, Normal Range of Motion, Non Tender, No Calf Tenderness, No Pedal Edema Neurologic/Psychiatric: Alert, Oriented x3, No Motor/Sensory Deficits, Normal Mood/Affect Skin: Normal Color, Warm/Dry Lymphatic: No Adenopathy Assessment/Plan Admission Diagnosis Sepsis Bilateral cellulitis lower legs Meth use Admission Status: Inpatient Order (span 2 midnights) Reason for Inpatient Admission: sepsis cellulitis Supervisory-Addendum Brief Verification & Attestation Participated in pt care: history, MDM, physical Personally performed: exam, history, MDM, supervision of care Care discussed with: Medical Student Procedures: n/a Results interpretation: Verified all documentation Verification and Attestation of Medical Student E/M Service A medical student performed and documented this service in my presence. I reviewed and verified all information documented by the medical student and made modifications to such information, when appropriate. I personally performed the physical exam and medical decision making. Ivette Jimenez, Oct 05, 2021,05:45 NENITA VAZQUEZ Oct 04, 2021 11:24 IVETTE JIMENEZ DO Oct 05, 2021 05:47
[2021-10-04 12:05] VITALS: BP 133/62
[2021-10-04] MEDS: PIPERACILLIN SODIUM/TAZOBACTAM 4.5 GM in NS (IVPB) 100 ML IV SCH ×2 (14:00→19:26)
--- NOTE | 2021-10-04 14:08 | CONSULTATION REPORT ---
DATE OF SERVICE: 10/04/2021 HISTORY OF PRESENT ILLNESS: The patient is a 61-year-old female, who presented to the Emergency Department with bilateral leg swelling, edema as well as wounds. She does have an extensive past medical history including a history of hepatitis C as well as active IV methamphetamine use. She was seen on 08/27/2021 for this same issue. Upon examination, she has bilateral chronic venous insufficiency, likely due to her body habitus as well as potential drug use. She has bilateral dry eschars of the lateral ankle distribution of the left lower extremity and the medial distribution of the right lower extremity. There is no surrounding redness or erythema to indicate any active infection. She has skin changes also consistent with chronic venous insufficiency. She also has a significant amount of edema. PAST MEDICAL HISTORY: Hepatitis C, IV drug abuse, chronic venous insufficiency, hypertension, and degenerative joint disease. PAST SURGICAL HISTORY: Cholecystectomy, total hysterectomy and tubal ligation. ALLERGIES: ERYTHROMYCIN. MEDICATIONS: Cephalexin 500 mg q.i.d., fluconazole 150 mg daily, and gabapentin 200 mg q.8 hours. SOCIAL HISTORY: Positive for cigarette smoke and positive for methamphetamine. FAMILY HISTORY: Noncontributory. REVIEW OF SYSTEMS: This is a well-nourished female, currently in no acute distress. She is not experiencing any shortness of breath or difficulty in breathing. No chest pain, palpitations, diaphoresis. No nausea, vomiting, no diarrhea or constipation. No fever, chills, no recent inadvertent weight loss. She complains of bilateral lower extremity pain as well as a right hip pain and she states a known history of degenerative arthritis. No recent inadvertent weight loss. PHYSICAL EXAMINATION: VITAL SIGNS: Temperature 37.5, blood pressure 126/94, pulse 110, respirations 20, and pulse ox 98% on room air. CHEST: Scattered rales and rhonchi bilaterally. HEART: Regular and no murmurs. EXTREMITIES: +2/3 bilateral lower extremity edema with skin changes around the foot and ankle distribution consistent with chronic venous insufficiency. She has palpable dorsalis pedis and posterior tibial pulses. There is a dry eschar along the medial aspect of the right lower extremity and lateral aspect of the left lower extremity. HEENT: No scleral icterus. NECK: No cervical lymphadenopathy. ABDOMEN: Soft, nontender, and nondistended. SKIN: Warm and dry. LABORATORY DATA: WBC 3.4, hemoglobin 11.7, hematocrit 37, platelets 213, BUN 18, and creatinine 1.11. ASSESSMENT AND PLAN: A 61-year-old female with chronic venous insufficiency due to body habitus as well as methamphetamine use with overlying dry eschar of bilateral ankle distribution. RECOMMENDATION: Our recommendation is to proceed with compression as well as leg elevation. At this time, there were no signs of any active abscess or infection and we will recommend placement of an Unna boot and then she will need compression with Vince wraps starting at the level of the forefoot with 4-inch Vince wrap and then followed by 6-inch Vince wrap all the way to above the knee bilaterally for the next six weeks, after which, she would need to have a staged, measured compression stockings. It was also explained to her that if she continues with the IV drug abuse as well as medical noncompliance, these will never heal and continue to open blister, become infected as well as become septic. Job ID: [id number] DocumentID: [id number] Dictated Date: 10/04/2021 13:51:51 Paginator Date: 10/04/2021 14:07:48 Dictated By: JIM BENAVIDES MD
[2021-10-04] MEDS: RT-ALBUTEROL HFA 8.5 GM INHALER IH SCH ×2 (15:41→21:18)
[2021-10-04 15:58] VITALS: BP 124/57
[2021-10-04 20:08] VITALS: BP 120/56
[2021-10-04 23:35] VITALS: BP 136/61
[2021-10-05] MEDS: RT-ALBUTEROL HFA 8.5 GM INHALER IH SCH ×3 (02:29→15:58)
[2021-10-05] MEDS: NS IV 1000 ML 1,000 ML IV SCH ×2 (03:05→05:00)
[2021-10-05] MEDS: PIPERACILLIN SODIUM/TAZOBACTAM 4.5 GM in NS (IVPB) 100 ML IV SCH ×2 (03:15→12:17)
[2021-10-05 03:18] VITALS: BP 129/61
[2021-10-05] MEDS: inSUlin ASPART (NovoLOG) 1 UNIT/0.01 ML (CHARGE PER UNIT) SC SCH ×2 (05:02→11:58)
[2021-10-05] MEDS ORDERED: TROUGH ORDER-PHARMACY XX ONE (08:00)
[2021-10-05 08:03] LABS: BASOPHILS % (AUTO) 1 % (0-10); EOSINOPHILS % (AUTO) 1 % (0-10); HEMATOCRIT 32 % (35-52); HEMOGLOBIN 10.2 g/dL (11.5-16.0); LYMPHOCYTES # (AUTO) 0.8 10^3/uL (1.0-4.0); LYMPHOCYTES % (AUTO) 38 % (12-44); MEAN CORPUSCULAR HEMOGLOBIN 25 pg (25-34); MEAN CORPUSCULAR HGB CONC 32 g/dL (32-36); MEAN CORPUSCULAR VOLUME 80 fL (80-99); MEAN PLATELET VOLUME 10.2 fL (9.0-12.2); MONOCYTES # (AUTO) 0.3 10^3/uL (0.0-1.0); MONOCYTES % (AUTO) 13 % (0-12); NEUTROPHILS % (AUTO) 48 % (42-75); PLATELET COUNT 184 10^3/uL (130-400); WHITE BLOOD COUNT 2.2 10^3/uL (4.3-11.0)
[2021-10-05 08:06] VITALS: BP 107/57
[2021-10-05 08:15] LABS: ALBUMIN 2.8 GM/DL (3.2-4.5)
[2021-10-05 08:16] LABS: POTASSIUM 3.6 MMOL/L (3.6-5.0)
[2021-10-05 08:17] LABS: CALCIUM 7.2 MG/DL (8.5-10.1)
[2021-10-05 08:18] LABS: TOTAL PROTEIN 5.8 GM/DL (6.4-8.2)
[2021-10-05 08:20] LABS: BILIRUBIN,TOTAL 0.6 MG/DL (0.1-1.0)
[2021-10-05 08:22] LABS: CREATININE SERUM 0.74 MG/DL (0.60-1.30)
[2021-10-05] MEDS: SENNOSIDES 8.6 MG (SENOKOT) TAB PO SCH ×2 (08:58→09:02)
[2021-10-05] MEDS: ENOXAPARIN 40 MG/0.4 ML (LOVENOX) SYR SC SCH (08:58)
[2021-10-05] MEDS: DOCUSATE SODIUM 100 MG (COLACE) CAP PO SCH (08:58)
[2021-10-05] MEDS ORDERED: IBUP-1780 PO (09:04)
[2021-10-05] MEDS ORDERED: LISI10TA25 PO (09:04)
[2021-10-05] MEDS: VANCOMYCIN 1500 MG/NS 500 ML IVPB IV SCH ×2 (09:40)
[2021-10-05 11:16] VITALS: BP 157/83
--- NOTE | 2021-10-05 11:28 | Progress Note - Hospitalist ---
NENITA VAZQUEZ 10/05/21 1128: Subjective HPI/CC On Admission CC: BIlateral lower extremity cellulitis with sepsis HPI: 61 yr old WF who is a known meth user. Who presents to the ER with lower extremity swelling and redness. Found to have bilateral cellulitis with significant eschar over the wounds. In need of debridement and IV antibiotics. We will continue gentle IV fluids and pain control and wait for Dr. Camejo consult. Subjective/Events-last exam This is a 61 y/o female with a hx of Hepatitis C infection and IV methamphetam ine abuse on hospital day #2 for sepsis due to soft tissue infection. Pt believes she is having a little more trouble breathing today. She reports increased pain in her back, but states that this is a chronic problem for her. She does not report any other complaints, and denies fever, chills, nausea, and change in bowel and bladder function. Hospital Course: Sadie Zavaleta, a 61 year old female patient presented to the [facility] ED for complaints of pain and warmth associated with bilateral wounds to the lower extremities. Notable findings in the ED included tachycardia, 2+ edema of the ankles and feet, large black eschars with visible fatty tissue to the medial as pect of the right leg and the posterior and lateral aspects of the left leg, a white cell count of 3.4, a positive D-Dimer, a chest CT negative for pulmonary emboli, a positive COVID-19 PCR, a chest X-ray showing bilateral infiltrates, and tibia and fibula X-rays showing no bony abnormalities. Ultimately, he/she was admitted to Med/Surg for sepsis secondary to bilateral lower extremity cellulitis. Consulted surgery for their lower extremity wounds. Continued appropriate evaluation and management on the general medicine floor service and they progressed well there. She was monitored and treated according to consulting specialists recommendations and the standard of care. Symptoms were managed well with IV fluids, IV vancomycin and zosyn, acetaminophen, and albuterol. No evidence of AMS or end organ dysfunction were noted during this admission. No episodes of oxygen desaturations at rest or during exertion requiring more aggressive noninvasive ventilation or invasive ventilation devices were observed. No signs or symptoms of pathological bleeding were noted. She was evaluated for their problems and deemed appropriate for outpatient follow-up. Upon the day of dismissal the patient was in agreement with the plan. The patient was noted by providers, nursing, and/or ancillary staff members to be tolerating the appropriate diet, having bowel movement(s), ambulating, oxygenating, and communicating at their prior baseline prior to dismissal. All questions were answered and the appropriate follow-up was made prior to the patient's dismissal. They will need to follow up with their PCP for wound care and post hospitalization evaluation. On dismissal the patient was encouraged to return to an emergency department if their symptoms/problems persist and/or worsen. Review of Systems General: No Chills; Appetite HEENT: No Head Aches, No Visual Changes, No Dysphasia, No Sore Throat Pulmonary: No Dyspnea, No Cough Cardiovascular: No: Chest Pain Gastrointestinal: No: Nausea, Vomiting, Abdominal Pain, Diarrhea, Constipation Genitourinary: No Dysuria, No Frequency Neurological: No: Confusion Focused Exam Lactate Level 10/04/21 04:10: Lactic Acid Level 0.98 Objective Exam Vital Signs Vital Signs Date Time Temp Pulse Resp B/P (MAP) Pulse Ox O2 Delivery O2 Flow Rate FiO2 10/05/21 08:17 93 Nasal Cannula 2.00 10/05/21 08:06 84 22 107/57 (74) 10/05/21 03:48 36.9 Capillary Refill : Less Than 3 Seconds General Appearance: No Apparent Distress, WD/WN HEENT: PERRL/EOMI Neck: Non Tender, Supple Respiratory: Chest Non Tender, Normal Breath Sounds, No Accessory Muscle Use, No Respiratory Distress Cardiovascular: Regular Rate, Rhythm, No Gallop, No Murmur Gastrointestinal: Non Tender, Soft Rectal: Deferred Extremity: Pedal Edema (2+ ankles and feet) Skin: Other (Areas of necrotic tissue with involvement down to the subcutaneous fat are noted to the bilateral lower extremities; wound to right leg weeping in the medial portion) Results/Procedures Lab Laboratory Tests 10/05/21 07:55 Patient resulted labs reviewed. Imaging: Reviewed Imaging Report Assessment/Plan Assessment and Plan Assess & Plan/Chief Complaint This is a 61 y/o female with a hx of Hepatitis C infection and IV methamphetamine abuse presenting for soft tissue infection to the bilateral lower extremities. Diagnosis/Problems Diagnosis/Problems (1) Sepsis Status: Acute Assessment & Plan: - SIRS criteria met: 2/4 (HR, WBC) - Qsofa 0/3 - Severe sepsis criteria not met - UA clean - blood cx pending - high suspicions for infectious process; soft tissue infection in b/l LE - WBC: 2.2 (down from 3.4) - Pt febrile this morning at 38.3; responded to acetaminophen - Continue Pip/tazo and Vanc - Vanc trough: 19.6 - PCT: 0.14, CRP: 4.55, ESR: 47 - will consider d/c abx after 48hours if no blood cx growth and lower clinical suspicion Qualifiers: Qualified Codes: A41.52 - Sepsis due to Pseudomonas (2) Bilateral lower leg cellulitis Status: Acute Assessment & Plan: - Wound culture 08/27/21 growing pseudomonas - Continue vanc and pip/tazo - General surgery consulted; recommending compression and observation at this time (3) COVID-19 virus infection Status: Acute Assessment & Plan: - PCR positive 10/04/21 - Febrile this morning at 38.3; responded to acetaminophen - O2 90% on RA; RR: 22 - Continue Albuterol (4) HTN (hypertension) Status: Chronic Assessment & Plan: - continue lisinopril Qualifiers: Qualified Codes: I10 - Essential (primary) hypertension (5) Methamphetamine use Status: Chronic Assessment & Plan: - Pt states last use was 10/04/21 - Drug screen in ED positive for meth - Pt not currently interested in quitting IVETTE SHETH DO 10/06/21 0538: Subjective HPI/CC On Admission Date Seen by Provider: Oct 05, 2021 Time Seen by Provider: 10:30 Subjective/Events-last exam Pt very upset Claims she did not have Covid when she came in and we gave it to her Her meth use is making her very paranoid Very anxious I do have Benzodiazepines available for her to take if needed Very upset no one is doing surgery on her legs but I understand Dr. Camejo's assessment with her noncompliance in meth use if we open up the leg wounds it will have greater risk for infection Did run a fever but now resolved after Tylenol She may leave against medical advice Objective Exam General Appearance: No Apparent Distress, Anxious, Chronically ill Respiratory: Lungs Clear, Normal Breath Sounds Cardiovascular: Regular Rate, Rhythm Assessment/Plan Assessment and Plan Assess & Plan/Chief Complaint Likely will leave AMA Supervisory-Addendum Brief Verification & Attestation Participated in pt care: history, MDM, physical Personally performed: exam, history, MDM, supervision of care Care discussed with: Medical Student Procedures: n/a Results interpretation: Verified all documentation Verification and Attestation of Medical Student E/M Service A medical student performed and documented this service in my presence. I reviewed and verified all information documented by the medical student and made modifications to such information, when appropriate. I personally performed the physical exam and medical decision making. Ivette Sheth, Oct 06, 2021,05:38 NENITA VAZQUEZ Oct 05, 2021 11:28 IVETTE SHETH DO Oct 06, 2021 05:38
[2021-10-05 15:27] VITALS: BP 148/74
--- NOTE | 2021-10-06 05:13 | Discharge Summary ---
Discharge Summary Hospital Course Was the Problem List Reviewed?: Yes Problems/Dx: (1) Left against medical advice (2) Sepsis Status: Acute Qualifiers: Qualified Codes: A41.52 - Sepsis due to Pseudomonas (3) Bilateral lower leg cellulitis Status: Acute (4) COVID-19 virus infection Status: Acute (5) HTN (hypertension) Status: Chronic Qualifiers: Qualified Codes: I10 - Essential (primary) hypertension (6) Methamphetamine use Status: Chronic Hospital Course LateralDate of Admission: Oct 04, 2021 at 06:10 Admission Diagnosis : Family Physician/Provider: Selena Batista MD Date of Discharge: 10/06/21 Discharge Diagnosis: Sepsis, bilateral lower extremity cellulitis with venous st asis dermatitis ulcerations, meth use Hospital Course: Short course before leaving AMA. Admitted for sepsis and cellulitis placed on vancomycin and Zosyn. COVID-19 swab was positive. Supportive care provided but she was upset and claims that we gave her COVID-19 because she did not have it when she was admitted which was incorrect. Meth withdrawal was causing paranoia and she ended up leaving AGAINST MEDICAL ADVICE Labs and Pending Lab Test: Laboratory Tests 10/05/21 07:55: White Blood Count 2.2L, Red Blood Count 4.06, Hemoglobin 10.2L, Hematocrit 32L, Mean Corpuscular Volume 80, Mean Corpuscular Hemoglobin 25, Mean Corpuscular Hemoglobin Concent 32, Red Cell Distribution Width 15.9H, Platelet Count 184, Mean Platelet Volume 10.2, Immature Granulocyte % (Auto) 1, Neutrophils (%) (Auto) 48, Lymphocytes (%) (Auto) 38, Monocytes (%) (Auto) 13H, Eosinophils (%) (Auto) 1, Basophils (%) (Auto) 1, Neutrophils # (Auto) 1.0L, Lymphocytes # (Auto) 0.8L, Monocytes # (Auto) 0.3, Eosinophils # (Auto) 0.0, Basophils # (Auto) 0.0, Immature Granulocyte # (Auto) 0.0, Sodium Level 133L, Potassium Level 3.6, Chloride Level 102, Carbon Dioxide Level 20L, Anion Gap 11, Blood Urea Nitrogen 15, Creatinine 0.74, Estimat Glomerular Filtration Rate 93, BUN/Creatinine Ratio 20, Glucose Level 86, Calcium Level 7.2L, Corrected Calcium 8.2L, Total Bilirubin 0.6, Aspartate Amino Transf (AST/SGOT) 43H, Alanine Aminotransferase (ALT/SGPT) 28, Alkaline Phosphatase 102, Total Protein 5.8L, Albumin 2.8L, Vancomycin Level Trough 19.6 10/05/21 11:22: Glucometer 148H 10/05/21 15:31: Glucometer 140H Microbiology 10/04/21 Blood Culture - Preliminary, Resulted No growth 10/04/21 Urine Culture - Final, Complete >=3 Gram Positive Isolates Home Meds Active Reported Ibuprofen 800 Mg Tablet 800 Mg PO Q8H PRN Lisinopril 10 Mg Tablet 10 Mg PO DAILY Assessment/Pt Instructions AMA Discharge Planning: <30 minutes discharge planning Discharge Physical Examination Vital Signs Vital Signs Date Time Temp Pulse Resp B/P (MAP) Pulse Ox O2 Delivery O2 Flow Rate FiO2 10/05/21 15:58 91 Room Air 2.00 10/05/21 15:27 36.8 92 20 148/74 (98) Allergies: Coded Allergies: erythromycin base (Verified Allergy, Unknown, 08/27/21) Discharge Summary Date of Admission Oct 04, 2021 at 06:10 Date of Discharge Oct 05, 2021 at 17:57 Admission Diagnosis Sepsis Bilateral cellulitis lower legs Meth use Discharge Diagnosis (1) Sepsis Status: Acute Assessment & Plan: - SIRS criteria met: 2/4 (HR, WBC) - Qsofa 0/3 - Severe sepsis criteria not met - UA clean - blood cx pending - high suspicions for infectious process; soft tissue infection in b/l LE - WBC: 2.2 (down from 3.4) - Pt febrile this morning at 38.3; responded to acetaminophen - Continue Pip/tazo and Vanc - Vanc trough: 19.6 - PCT: 0.14, CRP: 4.55, ESR: 47 - will consider d/c abx after 48hours if no blood cx growth and lower clinical suspicion Qualifiers: Qualified Codes: A41.52 - Sepsis due to Pseudomonas (2) Bilateral lower leg cellulitis Status: Acute Assessment & Plan: - Wound culture 08/27/21 growing pseudomonas - Continue vanc and pip/tazo - General surgery consulted; recommending compression and observation at this time (3) COVID-19 virus infection Status: Acute Assessment & Plan: - PCR positive 10/04/21 - Febrile this morning at 38.3; responded to acetaminophen - O2 90% on RA; RR: 22 - Continue Albuterol (4) HTN (hypertension) Status: Chronic Assessment & Plan: - continue lisinopril Qualifiers: Qualified Codes: I10 - Essential (primary) hypertension (5) Methamphetamine use Status: Chronic Assessment & Plan: - Pt states last use was 10/04/21 - Drug screen in ED positive for meth - Pt not currently interested in quitting DYLON SHETH DO Oct 06, 2021 05:13
== END 2021-10-05 17:57 | disposition left against medical advice (07) | DRG 871 ==
LOC: EDUNIT# 03:43 → ER 03:47 → 4TH 06:10
PROVIDERS: ADMIT Internal Medicine; ATTEND Internal Medicine
DX: A41.9 Sepsis, unspecified organism (principal); U07.1 COVID-19; L03.116 Cellulitis of left lower limb; L03.115 Cellulitis of right lower limb; I96 Gangrene, not elsewhere classified; L97.922 Non-pressure chronic ulcer of unspecified part of left lower leg with fat layer exposed; L97.912 Non-pressure chronic ulcer of unspecified part of right lower leg with fat layer exposed; I87.2 Venous insufficiency (chronic) (peripheral); F22 Delusional disorders; I10 Essential (primary) hypertension; F17.210 Nicotine dependence, cigarettes, uncomplicated; M19.90 Unspecified osteoarthritis, unspecified site; Z86.19 Personal history of other infectious and parasitic diseases; F15.10 Other stimulant abuse, uncomplicated; E66.9 Obesity, unspecified; G89.29 Other chronic pain; M25.559 Pain in unspecified hip; Z91.14 Patient's other noncompliance with medication regimen
CPT/HCPCS: 36415; 71045; 71275; 73590; 80053; 80202; 80306; 80320; 80329; 81000; 82550; 82553; 82947; 83036; 83605; 83735; 83874; 83880; 84145; 85025; 85379; 85610; 85652; 85730; 86141; 87040; 87088; 87636; 94640; 94760